=== PATIENT | male | born 1940 | race Caucasian/White ===

== ENCOUNTER → 2017-01-21 | Outpatient (CLI) | payer MEDICARE, BC ==
[~2017-01-21] MED LIST: ALTACE10 MG PO; CELEXA20 MG PO; COUMADIN1 MG PO; HYDROCHLOROTH12.5 MG PO; NORCO 325-5 MG1 TAB PO; NORVASC10 MG PO; PRAVACHOL40 MG PO; PRILOSEC40 MG PO; TOPROL XL100 MG PO; ZETIA10 MG PO
== END | disposition short-term general hospital (02) ==
LOC: CLUROL 12-24 08:44
DX: Z48.816 Encounter for surgical aftercare following surgery on the genitourinary system (principal)